=== PATIENT | male | born 1975 | race Caucasian/White ===

== ENCOUNTER → 2023-06-03 | Outpatient (CLI) | payer BC ==
--- NOTE | 2023-06-03 14:09 | CT ---
EXAMINATION TYPE: CT sinus wo con DATE OF EXAM: 06/03/2023 COMPARISON: None HISTORY: Acute sinusitis, localized in left eye area CT DLP: 680.[address] of the paranasal sinuses was performed in the axial and coronal planes. Bone and soft tissue settings are submitted. There is complete opacification of the left maxillary sinus with obstruction of the left ostiomeatal unit. There is also opacification of anterior left sided ethmoid air cells extending into the left fr ontal sinus. Mild expansion is suggested and polyposis is not excluded. Mild mucosal thickening at th e base of the right maxillary sinus. Sphenoid sinus is well aerated. Nasal septum is deviated from le ft to right. No bony destructive changes are seen within the field of view. IMPRESSION: 1. Opacification left maxillary sinus with obstruction of the left ostiomeatal unit. Opacification of anterior ethmoid air cells extending into the left frontal sinus. Underlying polyposis is not exclud ed.
== END | disposition home or self-care (01) ==
LOC: RADCTMAIN 13:35
PROVIDERS: ATTEND Family Medicine
DX: J01.90 Acute sinusitis, unspecified (principal)
CPT/HCPCS: 70486

== ENCOUNTER → 2024-02-14 | Outpatient (CLI) | payer BC ==
--- NOTE | 2024-02-14 10:46 | US ---
EXAMINATION TYPE: US scrotum with doppler. Grayscale and color Doppler Duplex imaging performed of stephany whittington scrotum. 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 There is no evidence of testicular torsion. Presence of hydroceles: No Presence of varicoceles: No Right epididymis enlarged, heterogeneous, and hypervascular suggesting epididymitis Results called to Lob[place] at Dr's office at time of exam IMPRESSION: 1. Heterogenous vascular flow within the right epididymis correlate for epididymitis. 2. No evidence for intratesticular mass. 3. Appropriate arterial and spectral venous waveforms to the testes.
== END | disposition home or self-care (01) ==
LOC: RADUSWWP 09:34
PROVIDERS: ATTEND Family Medicine
DX: N50.89 Other specified disorders of the male genital organs (principal)
CPT/HCPCS: 76870; 93975